=== PATIENT | female | born 1995 | race African-American/Black ===

== ENCOUNTER 2021-11-20 22:50 | Emergency (ER) | payer OTHER ==
[2021-11-20 23:00] VITALS: BP 104/69; PULSE 82; RESP 19; TEMP 98.1; BMI 26.5
[2021-11-21] MEDS ORDERED: ONDANSETRON 4 MG/2 ML VIAL IVPUSH ONE
[2021-11-21] MEDS ORDERED: SODIUM CHLORIDE 0.9% 500 ML INFUS.BAG IV ONE (00:01)
[2021-11-21 00:33] LABS: BASO % 0.8 % (0-2.0); EOS % 2.2 % (0-4.5); HEMATOCRIT 34.6 % (32.4-45.2); HEMOGLOBIN 11.8 GM/dL (10.7-15.3); LYMPH % 31.6 % (8-40); MCH 31.5 pg (25.7-33.7); MCHC 34.2 g/dl (32.0-36.0); MEAN CELL VOLUME 92.2 fl (80-96); MEAN PLT VOLUME 7.5 fl (7.5-11.1); MONO % 7.4 % (3.8-10.2); PLATELET COUNT 241 10^3/uL (134-434); RBC 3.75 M/mm3 (3.60-5.2); RDW 13.8 % (11.6-15.6); WHITE BLOOD COUNT 5.8 K/mm3 (4.0-10.0)
[2021-11-21 00:34] LABS: PH,URINE 6.5 (5.0-8.0); URINE APPEARANCE CLEAR; URINE BILIRUBIN NEGATIVE (NEGATIVE); URINE COLOR YELLOW; URINE GLUCOSE (UA) NEGATIVE (NEGATIVE); URINE KETONE TRACE (NEGATIVE); URINE LEUK ESTERASE NEGATIVE (NEGATIVE); URINE NITRITE NEGATIVE (NEGATIVE); URINE PROTEIN NEGATIVE (NEGATIVE)
[2021-11-21 00:56] LABS: ALBUMIN 3.4 g/dl (3.4-5.0); BLOOD UREA NITROGEN 7.6 mg/dL (7-18); CALCIUM 8.3 mg/dL (8.5-10.1)
[2021-11-21 00:59] LABS: CREATININE 0.7 mg/dL (0.55-1.3)
[2021-11-21 01:01] LABS: BILIRUBIN,TOTAL 0.3 mg/dL (0.2-1); TOT PROT 7.3 g/dl (6.4-8.2)
== END 2021-11-21 01:30 | disposition home or self-care (01) ==
LOC: JER 22:50
PROC: 3E033GC Introduction of Other Therapeutic Substance into Peripheral Vein, Percutaneous Approach (ICD-10-PCS; principal; 2021-11-20)
DX: O21.9 Vomiting of pregnancy, unspecified (principal); Z3A.13 13 weeks gestation of pregnancy
CPT/HCPCS: 36415; 76801-TC; 80053; 81003; 84702; 85025; 87086; 99284-25

== ENCOUNTER 2024-05-15 12:59 | Emergency (ER) | payer OTHER ==
[2024-05-15 13:04] VITALS: BP 106/68; PULSE 77; RESP 20; TEMP 98; BMI 24.4
[2024-05-15 13:57] LABS: URINE APPEARANCE CLEAR; URINE BILIRUBIN NEGATIVE (NEGATIVE); URINE COLOR YELLOW; URINE GLUCOSE (UA) NEGATIVE (NEGATIVE); URINE KETONE NEGATIVE (NEGATIVE); URINE LEUK ESTERASE NEGATIVE (NEGATIVE); URINE NITRITE NEGATIVE (NEGATIVE); URINE PROTEIN NEGATIVE (NEGATIVE)
[2024-05-15 14:00] LABS: HCG,QUALITATIVE URINE Negative
[2024-05-15 14:32] LABS: ABSOLUTE IMMATURE GRANULOCYTES 0.01 x10^3/uL (0.0-0.031); BASOPHILS # 0.02 x10^3/uL (0.01-0.08); EOSINOPHIL % 3.1 % (0.7-5.8); EOSINOPHILS # 0.13 x10^3/uL (0.04-0.36); HEMATOCRIT 35.5 % (34.1-44.9); MEAN CELL VOLUME 94.4 fl (79.4-94.8); MEAN PLT VOLUME 9.6 fl (9.4-12.3); MONOCYTE # 0.43 x10^3/uL (0.24-0.86); MONOCYTE % 10.1 % (4.7-12.5); PLATELET COUNT 260 x10^3/uL (182-369); RDW 12.7 % (12.1-16.5)
[2024-05-15 14:59] LABS: POTASSIUM 4.4 mmol/L (3.5-5.1)
[2024-05-15 15:01] LABS: ALBUMIN 3.7 g/dl (3.4-5.0)
[2024-05-15 15:06] LABS: BILIRUBIN,TOTAL 0.6 mg/dL (0.2-1); CREATININE 0.9 mg/dL (0.55-1.3); TOT PROT 7.5 g/dl (6.4-8.2)
[2024-05-15] MEDS ORDERED: cefTRIAXone SODIUM 1 GM VIAL ONE (17:39)
== END 2024-05-15 18:45 | disposition home or self-care (01) ==
LOC: JER 12:59
DX: R10.31 Right lower quadrant pain (principal); N89.8 Other specified noninflammatory disorders of vagina
CPT/HCPCS: 36415; 74177-TC; 76830-TC; 80053; 81003; 84703; 85025; 86850; 86900; 86901; 87070; 87077; 87086; 87205; 87491; 87591; 99285-25; Q9967